=== PATIENT | female | born 1940 | race Caucasian/White ===

== ENCOUNTER 2021-09-12 12:38 | Emergency (ER) | payer BC, OTHER ==
[2021-09-12 13:13] VITALS: BP 138/71; PULSE 62; RESP 17; TEMP 98.3; BMI 25.8
== END 2021-09-12 18:47 | disposition home or self-care (01) ==
LOC: JERFT 12:38
DX: S42.255A Nondisplaced fracture of greater tuberosity of left humerus, initial encounter for closed fracture (principal); M25.561 Pain in right knee; W19.XXXA Unspecified fall, initial encounter
CPT/HCPCS: 70450-TC; 73030-TC-LT-FY; 73200-TC-RT; 73560-TC-RT-FY; 99284-25